=== PATIENT | male | born 1960 | race Caucasian/White ===

== ENCOUNTER 2022-01-03 07:51 | Outpatient (CLI) | payer OTHER, SELFPAY ==
--- NOTE | 2022-01-03 08:02 | ECG_ITS ---
Measurements Intervals [place] Rate: 70 P: 74 CO: 180 QRS: -43 QRSD: 90 T: 16 QT: 378 QTc: 408 Interpretive Statements SINUS RHYTHM LEFT AXIS DEVIATION INCOMPLETE RIGHT BUNDLE BRANCH BLOCK BASELINE ARTIFACT- I, II, III, AVR, AVL, AVF BORDERLINE ECG Electronically Signed On 01-03-2022 18:25:11 CDT by Ronny Moscoso D.O.
== END 2022-01-03 07:52 | disposition home or self-care (01) ==
LOC: ANHSURGERY 07:55
PROVIDERS: Visit Provider Urology
DX: N48.6 Induration penis plastica (principal); E78.00 Pure hypercholesterolemia, unspecified; Z01.818 Encounter for other preprocedural examination; I45.10 Unspecified right bundle-branch block
CPT/HCPCS: 87086; 93005

== ENCOUNTER 2022-01-08 01:08 | Day surgery (SDC) | payer OTHER, SELFPAY ==
--- NOTE | 2022-01-01 15:08 | SUR.PREOP ---
Report to the Outpatient Waiting Room, entrance under the green pavilion located off [facility], at time 1200 on date 01/08/22. OR Time: 1400. - You and your visitor will be asked a series of questions to screen for COVID 19 for your protection. - Only one visitor is allowed at this time. - The patient visitor is requested to leave or wait in car when not with patient. - A mask is required within the hospital. Patients may have clear liquids (water, carbonated beverages, clear teas, apple juice) until 3 hours prior to surgery with a maximum of 20 ounces. - NO CLEAR LIQUIDS AFTER 1100 - No food from midnight until time of surgery - Infants may have breast milk until 4 hours before surgery, infant formula 6 hours prior to surgery. - Children will be allowed to drink immediately following surgery. If applicable, please bring a bottle or sippy cup to assist with drinking. Juice, water, soda, and popsicles are readily available. For infants on formula, please bring formula the day of surgery. Pacifiers are allowed. Medications to discontinue per physician INSTRUCTED TO CALL DR SAWYER IN REGARDS TO CONTINUING OR STOPPING ASPIRIN Please no make-up, nail spanish, hairspray, perfume, deodorant, or body powder the day of surgery. No jewelry (including any body piercings) or valuables the day of surgery, leave them at home. Please take a shower or bath the night before, or the morning of, surgery with an antibacterial soap. Wear comfortable, loose fitting clothing. Children are encouraged to wear pajamas. - Jewelry must be removed prior to entering the operating room. Rings and piercings that are not removed may be cut off. - The hospital will not accept responsibility for valuables. - Please leave all valuables, including medications, at home the day of surgery. If you are going home after surgery, a licensed dedicated regional driver must drive you home. - NO public transportation without another adult. - We recommend that an adult stay with you for 24 hours following discharge. - We also recommend that you do not drive, make important decision, drink alcoholic beverages, or take any drugs that were not prescribed by your health care provider for at least 24 hours after your discharge time. For Pediatric surgeries, we recommend two adults accompany the child home (only one inside the building at this time). Follow any additional instructions given to you from your surgeon. If you or anyone in your household have experienced Covid symptoms in the past week, please notify your surgeon or the nurse liaison at the phone number below for possible testing. Telephone instructions given to SALAS KELLEY and asked if any additional questions and then verbalized understanding. Patient advised to call surgeon office or pre surgery nurse liaison [phone] if any additional questions.
[2022-01-01 15:20] VITALS: BMI 26.2
[2022-01-08] VITALS (8 sets, daily range): BP systolic 102–117; BP diastolic 66–91; PULSE 76–90; RESP 14–20; TEMP 37.1; O2SAT 91–97
--- NOTE | 2022-01-08 11:44 | P.PNAN_ITS ---
Anes - Initial Pre Proc Eval Procedure: Operation Date: 01/08/22 13:00 Proposed Procedures p Penile Plication - Yvonne Proctor MD Date/Time: 01/08/22 11:44 Surgeon: Yvonne Proctor MD Pre Op Diagnosis: Peyronie's disease Patient Data Age: 61 Gender: M Height: 1.7 m Weight: 76 kg Allergies Allergy/AdvReac Type Severity Reaction Status Date / Time Penicillins Allergy Unknown RASH Verified 01/08/22 11:18 Home Medications Medication Instructions Recorded Confirmed Type aspirin 81 mg tablet,delayed 1 tablet PO DAILY 01/01/22 01/08/22 History release atorvastatin 40 mg tablet 1 tablet PO HS 01/01/22 01/08/22 History pantoprazole 20 mg tablet,delayed 1 tablet PO DAILY 01/01/22 01/08/22 History release ECG: Date of Service: 01/03/22 Procedure(s): CA 12 lead EKG Accession Number(s): [id number] cc: ~ ? Measurements Intervals? [place]? Rate: ? 70 ? P:? 74 NV: ? 180? QRS:? -43 QRSD: ? 90 ? T:? 16 QT: ? 378? QTc:? 408? Interpretive Statements SINUS RHYTHM LEFT AXIS DEVIATION INCOMPLETE RIGHT BUNDLE BRANCH BLOCK BASELINE ARTIFACT- I, II, III, AVR, AVL, AVF BORDERLINE ECG Electronically Signed On 01-03-2022 18:25:11 CDT by Ronny Moscoso D.O. Patient hx anesthesia problems: none Family hx anesthesia problems: none Results Review: All pre-operative results and documents have been reviewed as part of the pre- operative evaluation. PMFSH Past Medical History Medical History (Updated 01/08/22 @ 11:45 by Kris Ruiz MD) Chronic GERD Hyperlipidemia Overweight (BMI 25.0-29.9) Ureterolithiasis Social History Social History Smoking packs per day: 1 Smoking cigarettes per day: 20.0 Years smoked: 35 Smoking pack-years: 35.00 Smoking status: Current every day smoker Tobacco type: cigarettes Substance use: never Living arrangements: with family Spiritual care concerns: No Anes - Eval Final PreProcedure Day of Procedure 01/08/22 11:44 Patient weight: overweight Heart: regular rate and rhythm Lungs: clear to auscultation and normal air movement Airway: Mallampati scale class II Neurological: alert and oriented Last oral intake: >/= 8 hours ASA classification: II Emergent: no Anesthetic plan: proceed Anesthesia type and monitoring: general LMA Results Review: All pre-operative results and documents have been reviewed as part of the pre- operative evaluation. Informed Consent: The patient's anesthetic plan and its attendant risks and benefits were discussed with the patient/family/POA. Questions were solicited and answers provided to the satisfaction of the patient/family/POA.
[2022-01-08] MEDS: LACTATED RINGERS 1,000 ML 30 ML IV CONT ×2 (11:54→16:18)
--- NOTE | 2022-01-08 12:26 | WPDHPUPDATE1 ---
History and Physical Update Update Date/Time: 01/08/22 12:26 History and Physical has been reviewed, including an updated exam of the patient. There are NO changes in the patient's condition. Risks, benefits, and alternatives have been discussed and questions answered. Patient agrees to proceed with procedure.
[2022-01-08] MEDS: BUPIVACAINE HCL 0.5% PF 30 ML VIAL INFILTRATE (13:55)
--- NOTE | 2022-01-08 16:14 | P.OP_ITS ---
Procedure Note - Detailed Date of Procedure 01/08/22 Pre-op Diagnosis Peyronie's disease Post-op Diagnosis Same Procedure Performed Penile Plication Surgeon Yvonne Proctor MD Description of Procedure Informed consents obtained. Patient taken to the operating room. He was given preoperative IV antibiotics. He was induced anesthesia. He was then prepped and draped in normal sterile fashion. We performed a penile block with Marcaine without epinephrine. We then induced an erection which revealed 65? of ventral and 45? of right curvature. We then made a dorsal left incision over the patient's previous circumcision site. We then dissected down to the layer of Tim's fascia. We then again induce an erection and marked the area of maximal curvature. At this point we then made a incision in Tim's fascia just lateral to the urethra on the left side and carefully mobilized the neurovascular bundle medially to expose the corporal body. A total of 3 sutures were placed on the left side in a modified Lue technique with 3-0 Ethibond suture. In addition, we opened the Tim's fascia at the 12 o'clock position directly above the dorsal vein. We then mobilized the dorsal vein and directly underneath the dorsal vein placed a total of 6 sutures with 3-0 Ethibond suture in a modified plication technique. After each suture artificial erection was performed showing improvement of curvature. At the completion of suture placement, the patient had [id number] to 15? of curvature remaining in the ventral and right ankles. This appear to be a significant improvement in cosmetic result and likely would allow for functionality. We elected not to place additional sutures at this time to avoid further loss of length as curvature correction appeared sufficient at this time. We then irrigated copiously. There was good hemostasis. We then reapproximated Tim's fascia over the sutures with 3-0 Vicryl suture. Dartos l pete was closed with 3-0 Vicryl suture. Skin was closed with a 4-0 Monocryl horizontal mattress closure. Surgical glue was placed. Compressive dressing was placed. Patient was taken to recovery room in stable condition Complications No immediate complications Condition Stable Disposition PACU
== END 2022-01-08 18:05 | disposition home or self-care (01) ==
PROVIDERS: Visit Provider Urology
PROC: (CPT 54360; principal; 2022-01-08 13:00)
DX: N48.6 Induration penis plastica (principal); E78.5 Hyperlipidemia, unspecified; K21.9 Gastro-esophageal reflux disease without esophagitis; Z79.82 Long term (current) use of aspirin; F17.210 Nicotine dependence, cigarettes, uncomplicated
CPT/HCPCS: 54360; A9270; J0690; J1100; J2250; J2370; J2405; J2704; J3010; J7030; J7120